=== PATIENT | male | born 1965 | race Hispanic/Latino ===

== ENCOUNTER 2022-10-04 09:54 | Emergency (ER) | payer OTHER ==
[2022-10-04] MEDS ORDERED: NORVASC10 MG PO (10:21)
[2022-10-04] MEDS ORDERED: ZYRTEC10 MG PO (10:22)
[2022-10-04] MEDS ORDERED: LEVOTHYROXINE75 MC1 PO (10:22)
[2022-10-04] MEDS ORDERED: OPCON-A EYE DRO15 ML OPTH (10:23)
[2022-10-04] MEDS ORDERED: NAPROXEN375 MG PO (10:23)
[2022-10-04] MEDS ORDERED: ZESTRIL20 MG PO (10:23)
[2022-10-04] MEDS ORDERED: NASAL DECONGEST30 MG PO (11:51)
[2022-10-04] MEDS ORDERED: FLONASE ALLERG9.9 ML NAS (11:51)
[2022-10-04] MEDS ORDERED: ALL DAY ALLERGY10 MG PO (11:51)
[2022-10-04] MEDS ORDERED: MECLIZINE HCL25 MG PO (11:55)
[2022-10-04 12:30] VITALS: BP 106/70
--- NOTE | 2022-10-04 18:10 | EKG ---
[facility] [address] [place], [place] [address] Signed Sinus bradycardia Otherwise normal ECG No previous ECGs available Confirmed by LUCIO PARRISH MD ([id number] on 10/04/2022 6:10:39 PM Electronically Signed By: LUCIO PARRISH MD 10/04/221809 PATIENT NAME: REILLY KELLY Electrocardiogram DATE OF : 63 PHYSICIAN: LUCIO PARRISH MD REPORT #: [id number] REPORT IS CONFIDENTIAL AND NOT TO BE RELEASED WITHOUT AUTHORIZATION
== END 2022-10-04 12:30 | disposition home or self-care (01) ==
LOC: ED 09:54
DX: R42 Dizziness and giddiness (principal); J30.9 Allergic rhinitis, unspecified; Z79.899 Other long term (current) drug therapy
CPT/HCPCS: 36415; 70450; 80053; 85025; 93005; 93010; 96374; 99284-25; A9270; J2405